=== PATIENT | female | born 1990 | race Caucasian/White ===

== ENCOUNTER 2016-04-22 09:08 | Emergency (ER) | payer OTHER | END 2016-04-22 09:13 | disposition home or self-care (01) | LOC: CFTX 09:08 | DX: O99.89 Other specified diseases and conditions complicating pregnancy, childbirth and the puerperium (principal); R05 Cough; Z90.49 Acquired absence of other specified parts of digestive tract; O99.331 Smoking (tobacco) complicating pregnancy, first trimester; F17.210 Nicotine dependence, cigarettes, uncomplicated | CPT/HCPCS: 96372; 99283; J0696 ==